=== PATIENT | male | born 1955 | race Caucasian/White ===

== ENCOUNTER 2018-10-28 19:54 | Emergency (ER) | payer OTHER ==
[~2018-10-28] VITALS: Ht 188 cm; Wt 118.2 kg
[2018-10-28 19:55] VITALS: BP 140/88
[2018-10-28] MEDS ORDERED: METO25TA4 PO (20:05)
[2018-10-28] MEDS ORDERED: LISI2.5T76 PO (20:05)
[2018-10-28] MEDS ORDERED: ASPI81TA21 PO (20:05)
[2018-10-28] MEDS ORDERED: LIPI80TA PO (20:05)
[2018-10-28] MEDS ORDERED: PLAV1TAB2 PO (20:05)
[2018-10-28] MEDS ORDERED: LIDOCAINE 2% MDV 20 ML VIAL SC ONE (20:30)
[2018-10-28] MEDS ORDERED: AUGM875T28 PO (20:49)
[2018-10-28] MEDS ORDERED: AUGMENTIN 875 MG TAB PO ONE (21:00)
== END 2018-10-28 21:02 | disposition home or self-care (01) ==
LOC: M ED 19:54
DX: K02.9 Dental caries, unspecified (principal); K05.00 Acute gingivitis, plaque induced; I10 Essential (primary) hypertension; I25.2 Old myocardial infarction; Z95.0 Presence of cardiac pacemaker; Z95.5 Presence of coronary angioplasty implant and graft; Z79.899 Other long term (current) drug therapy; Z79.82 Long term (current) use of aspirin; Z79.02 Long term (current) use of antithrombotics/antiplatelets